=== PATIENT | female | born 1940 | race African-American/Black ===

== ENCOUNTER 2016-07-27 21:34 | Emergency (ER) | payer MEDICARE | END 2016-07-28 00:38 | disposition home or self-care (01) | LOC: D.ER 21:34 | DX: S16.1XXA Strain of muscle, fascia and tendon at neck level, initial encounter (principal); X58.XXXA Exposure to other specified factors, initial encounter; Y93.89 Activity, other specified; Y92.019 Unspecified place in single-family (private) house as the place of occurrence of the external cause; M48.36 Traumatic spondylopathy, lumbar region; I10 Essential (primary) hypertension ==

== ENCOUNTER 2017-02-02 03:08 | Emergency (ER) | payer MEDICARE ==
[2017-02-02 03:41] LABS: BASOPHILS 0.1 % (0-2); EOSINOPHILS 0.9 % (0-7); HEMATOCRIT 35.8 % (36.0-48.0); HEMOGLOBIN 11.8 g/dL (12-16); IMMATURE GRANULOCYTES 0.1 % (0-5); LYMPHOCYTES 35.5 % (15-50); MCH 27.4 pg (26.0-34.0); MCV 83.3 fL (80.0-100.0); MEAN PLATELET VOLUME 10.1 fL (7.4-10.4); MONOCYTES 6.5 % (2-11); NEUTROPHILS 56.9 % (40-80); PLATELET COUNT 283 10x3/uL (130-400); RDW 14.9 % (11.5-14.5); WBC 8.8 10x3/uL (4.8-10.8)
[2017-02-02 04:04] LABS: ALBUMIN 3.4 g/dL (3.4-5.0); ALKALINE PHOSPHATASE 94 U/L (46-116); ALT (SGPT) 20 U/L (10-68); BILIRUBIN - TOTAL 0.22 mg/dL (0.2-1.3); CALC OSMOLALITY 274 mosm/kg (275-300); CALCIUM 8.7 mg/dL (8.5-10.1); CARBON DIOXIDE 28.6 mmol/L (21.0-32.0); CHLORIDE - SERUM 101 mmol/L (98-107); CREATININE - SERUM 0.7 mg/dL (0.6-1.3); GLUCOSE 113 mg/dL (74-106); POTASSIUM - SERUM 3.2 mmol/L (3.5-5.1); SODIUM 137 mmol/L (136-145); UREA NITROGEN 12 mg/dL (7-18); eGFR NON AFRICAN AMERICAN 86 mL/min (90-120)
[2017-02-02 04:14] LABS: CKMB 1.7 U/L (0.0-3.6); CREATINE KINASE 293 UL (21-215)
[2017-02-02 04:16] LABS: TROPONIN-I < 0.017 ng/mL (0.000-0.060)
[2017-02-02 04:56] LABS: APPEARANCE CLEAR (CLEAR); BILIRUBIN NEGATIVE (NEGATIVE); COLOR YELLOW (YELLOW); GLUCOSE NEGATIVE (NEGATIVE); KETONE NEGATIVE (NEGATIVE); NITRITE NEGATIVE (NEGATIVE); PROTEIN NEGATIVE (NEGATIVE); SPECIFIC GRAVITY 1.015 (1.005-1.020); UROBILINOGEN NORMAL (NORMAL)
== END 2017-02-02 06:57 | disposition home or self-care (01) ==
LOC: D.ER 03:08
PROVIDERS: Family Medicine
DX: I10 Essential (primary) hypertension (principal); E87.6 Hypokalemia; R00.1 Bradycardia, unspecified

== ENCOUNTER 2017-05-26 17:59 | Emergency (ER) | payer MEDICARE ==
[2017-05-26 19:07] LABS: APPEARANCE HAZY (CLEAR); BACTERIA FEW /hpf (NONE SEEN); BILIRUBIN NEGATIVE (NEGATIVE); COLOR YELLOW (YELLOW); EPITHELIAL CELLS 0-5 /hpf (0-5); GLUCOSE NEGATIVE (NEGATIVE); KETONE NEGATIVE (NEGATIVE); MUCUS >1+ /lpf (NONE SEEN); NITRITE NEGATIVE (NEGATIVE); PROTEIN NEGATIVE (NEGATIVE); RED CELLS - URINE 0-5 /hpf (0-5); UROBILINOGEN NORMAL (NORMAL); WHITE CELLS - URINE 0-5 /hpf (0-5)
[2017-05-26 19:44] LABS: BASOPHILS 0.1 % (0-2); EOSINOPHILS 1.2 % (0-7); HEMATOCRIT 39.6 % (36.0-48.0); HEMOGLOBIN 12.7 g/dL (12-16); IMMATURE GRANULOCYTES 0.3 % (0-5); LYMPHOCYTES 43.9 % (15-50); MCHC 32.1 g/dL (31.0-37.0); MCV 84.1 fL (80.0-100.0); MEAN PLATELET VOLUME 10.6 fL (7.4-10.4); NEUTROPHILS 46.5 % (40-80); PLATELET COUNT 294 10x3/uL (130-400); RBC 4.71 10x6/uL (4.00-5.40); RDW 14.9 % (11.5-14.5); WBC 7.6 10x3/uL (4.8-10.8)
[2017-05-26 19:53] LABS: ALBUMIN 3.6 g/dL (3.4-5.0); ALKALINE PHOSPHATASE 98 U/L (46-116); ALT (SGPT) 20 U/L (10-68); AMYLASE - SERUM 66 U/L (25-115); BILIRUBIN - TOTAL 0.19 mg/dL (0.2-1.3); CALC OSMOLALITY 280 mosm/kg (275-300); CALCIUM 8.9 mg/dL (8.5-10.1); CARBON DIOXIDE 26.7 mmol/L (21.0-32.0); CHLORIDE - SERUM 103 mmol/L (98-107); CREATININE - SERUM 0.7 mg/dL (0.6-1.3); GLUCOSE 96 mg/dL (74-106); POTASSIUM - SERUM 3.4 mmol/L (3.5-5.1); PROTEIN - SERUM 7.7 g/dL (6.4-8.2); SODIUM 142 mmol/L (136-145); UREA NITROGEN 8 mg/dL (7-18); eGFR NON AFRICAN AMERICAN 86 mL/min (90-120)
[2017-05-26 20:01] LABS: LIPASE 443 U/L (73-393)
== END 2017-05-26 21:44 | disposition home or self-care (01) ==
LOC: D.ER 17:59
PROVIDERS: Family Medicine
DX: M54.5 Low back pain (principal); I10 Essential (primary) hypertension

== ENCOUNTER 2017-06-17 11:19 | Emergency (ER) | payer MEDICARE, MEDICAID | END 2017-06-17 14:46 | disposition left against medical advice (07) | LOC: D.ER 11:19 | DX: M54.5 Low back pain (principal) ==

== ENCOUNTER 2017-10-26 02:44 | Emergency (ER) | payer MEDICARE, MEDICAID ==
[~2017-10-26] VITALS: Ht 157.5 cm; Wt 70.9 kg
[2017-10-26 02:53] VITALS: Ht 157.5 cm; Wt 70.9 kg
[2017-10-26] MEDS ORDERED: ULTRAM50 MG PO ×2 (02:55→04:03)
[2017-10-26] MEDS ORDERED: CELEBREX 100 M100 MG PO (02:55)
[2017-10-26] MEDS ORDERED: NORVASC10 MG (02:56)
[2017-10-26] MEDS ORDERED: NEURONTIN 300300 MG PO (02:56)
[2017-10-26] MEDS ORDERED: PRAVACHOL40 MG PO (02:56)
[2017-10-26] MEDS ORDERED: HYZAAR 100-25 T1 TAB PO (02:56)
[2017-10-26] MEDS ORDERED: CYMBALTA60 MG PO (02:56)
[2017-10-26] MEDS ORDERED: HYDROCODONE-APA1 TAB PO (02:56)
[2017-10-26] MEDS ORDERED: BYSTOLIC2.5 MG PO (02:56)
[2017-10-26 04:56] VITALS: BP 165/72
== END 2017-10-26 04:32 | disposition home or self-care (01) ==
LOC: D.ER 02:44
DX: M54.5 Low back pain (principal); M47.9 Spondylosis, unspecified

== ENCOUNTER 2018-11-13 19:29 | Emergency (ER) | payer MEDICARE, MEDICAID ==
[~2018-11-13] VITALS: Ht 157.5 cm; Wt 50.0 kg
[~2018-11-13 19:29] MED LIST: BYSTOLIC2.5 MG PO; CELEBREX 100 M100 MG PO; CYMBALTA60 MG PO; HYDROCODONE-APA1 TAB PO; HYZAAR 100-25 T1 TAB PO; NEURONTIN 300300 MG PO; NORVASC10 MG; PRAVACHOL40 MG PO; ULTRAM50 MG PO
[2018-11-13 19:33] VITALS: Ht 157.5 cm; Wt 50.0 kg
[2018-11-13 20:54] LABS: BASOPHILS 0.2 % (0-2); EOSINOPHILS 1.2 % (0-7); HEMATOCRIT 38.3 % (36.0-48.0); HEMOGLOBIN 12.4 g/dL (12-16); IMMATURE GRANULOCYTES 0.2 % (0-5); LYMPHOCYTES 45.5 % (15-50); MCH 27.2 pg (26.0-34.0); MCHC 32.4 g/dL (31.0-37.0); MEAN PLATELET VOLUME 10.3 fL (7.4-10.4); MONOCYTES 8.1 % (2-11); NEUTROPHILS 44.8 % (40-80); PLATELET COUNT 280 10x3/uL (130-400); RBC 4.56 10x6/uL (4.00-5.40); RDW 14.9 % (11.5-14.5); WBC 8.7 10x3/uL (4.8-10.8)
[2018-11-13 20:58] LABS: ALBUMIN 3.6 g/dL (3.4-5.0); ALKALINE PHOSPHATASE 102 U/L (46-116); ALT (SGPT) 17 U/L (10-68); CALC OSMOLALITY 285 mosm/kg (275-300); CARBON DIOXIDE 28.9 mmol/L (21.0-32.0); CHLORIDE - SERUM 107 mmol/L (98-107); CREATININE - SERUM 0.9 mg/dL (0.6-1.3); GLUCOSE 104 mg/dL (74-106); POTASSIUM - SERUM 3.9 mmol/L (3.5-5.1); PROTEIN - SERUM 8.2 g/dL (6.4-8.2); SODIUM 143 mmol/L (136-145); UREA NITROGEN 14 mg/dL (7-18); eGFR NON AFRICAN AMERICAN 64 mL/min (90-120)
[2018-11-13 21:01] LABS: INR 1.07 (0.85-1.17); PROTIME 13.4 SECONDS (11.6-15.0)
[2018-11-13 21:11] LABS: CKMB 1.4 U/L (0.0-3.6); CREATINE KINASE 217 UL (21-215); MAGNESIUM - SERUM 1.9 mg/dL (1.8-2.4); TROPONIN-I < 0.017 ng/mL (0.000-0.060)
[2018-11-13] MEDS ORDERED: HYDROCODON-ACE1 EAC2 PO (21:54)
[2018-11-13 22:40] VITALS: BP 169/72
== END 2018-11-13 22:40 | disposition home or self-care (01) ==
LOC: D.ER 19:29
PROVIDERS: Emergency Medicine
DX: R07.89 Other chest pain (principal)

== ENCOUNTER 2018-11-26 11:19 | Emergency (ER) | payer MEDICARE, MEDICAID ==
[~2018-11-26] VITALS: Ht 157.5 cm; Wt 70.9 kg
[~2018-11-26 11:19] MED LIST changes: +HYDROCODON-ACE1 EAC2 PO
[2018-11-26 11:22] VITALS: Ht 157.5 cm; Wt 70.9 kg
[2018-11-26] MEDS ORDERED: ZITHROMAX500 MG PO (12:04)
[2018-11-26] MEDS ORDERED: TESSALON PERLE100 MG PO (12:04)
[2018-11-26 12:10] LABS: BASOPHILS 0.3 % (0-2); EOSINOPHILS 0.5 % (0-7); HEMATOCRIT 36.6 % (36.0-48.0); HEMOGLOBIN 12.6 g/dL (12-16); IMMATURE GRANULOCYTES 0.3 % (0-5); LYMPHOCYTES 30.6 % (15-50); MCH 28.1 pg (26.0-34.0); MCHC 34.4 g/dL (31.0-37.0); MCV 81.7 fL (80.0-100.0); MEAN PLATELET VOLUME 9.8 fL (7.4-10.4); NEUTROPHILS 60.3 % (40-80); PLATELET COUNT 307 10x3/uL (130-400); RBC 4.48 10x6/uL (4.00-5.40); RDW 14.6 % (11.5-14.5); WBC 11.6 10x3/uL (4.8-10.8)
[2018-11-26 12:27] LABS: ALBUMIN 3.5 g/dL (3.4-5.0); ALKALINE PHOSPHATASE 95 U/L (46-116); ALT (SGPT) 21 U/L (10-68); BILIRUBIN - TOTAL 0.53 mg/dL (0.2-1.3); CALC OSMOLALITY 280 mosm/kg (275-300); CARBON DIOXIDE 30.8 mmol/L (21.0-32.0); CHLORIDE - SERUM 102 mmol/L (98-107); CREATININE - SERUM 0.8 mg/dL (0.6-1.3); GLUCOSE 90 mg/dL (74-106); PRO BNP 234 pg/mL (0-450); PROTEIN - SERUM 8.5 g/dL (6.4-8.2); SODIUM 142 mmol/L (136-145); UREA NITROGEN 6 mg/dL (7-18); eGFR NON AFRICAN AMERICAN 73 mL/min (90-120)
[2018-11-26 12:30] LABS: POTASSIUM - SERUM 2.9 mmol/L (3.5-5.1); TROPONIN-I < 0.017 ng/mL (0.000-0.060)
[2018-11-26] MEDS ORDERED: ALBUTEROL SULF8.5 GM INH (12:32)
[2018-11-26 13:02] VITALS: BP 156/79
== END 2018-11-26 12:59 | disposition home or self-care (01) ==
LOC: D.ER 11:19
PROVIDERS: Family Medicine
DX: J20.9 Acute bronchitis, unspecified (principal); G89.29 Other chronic pain; E87.6 Hypokalemia

== ENCOUNTER 2019-03-13 14:14 | Emergency (ER) | payer MEDICARE, MEDICAID ==
[~2019-03-13] VITALS: Ht 157.5 cm; Wt 68.2 kg
[~2019-03-13 14:14] MED LIST changes: +ALBUTEROL SULF8.5 GM INH; +TESSALON PERLE100 MG PO; +ZITHROMAX500 MG PO
[2019-03-13 14:18] VITALS: Ht 157.5 cm; Wt 68.2 kg
[2019-03-13] MEDS ORDERED: OMNICEF300 MG PO (15:04)
[2019-03-13 15:36] VITALS: BP 119/82
== END 2019-03-13 15:36 | disposition home or self-care (01) ==
LOC: D.ER 14:14
DX: J02.0 Streptococcal pharyngitis (principal); I10 Essential (primary) hypertension

== ENCOUNTER 2019-03-24 17:25 | Emergency (ER) | payer MEDICARE, MEDICAID ==
[~2019-03-24] VITALS: Ht 157.5 cm; Wt 68.2 kg
[~2019-03-24 17:25] MED LIST changes: +OMNICEF300 MG PO
[2019-03-24 17:29] VITALS: Ht 157.5 cm; Wt 68.2 kg
[2019-03-24 18:08] LABS: BASOPHILS 0.1 % (0-2); EOSINOPHILS 0.8 % (0-7); HEMATOCRIT 37.6 % (36.0-48.0); HEMOGLOBIN 12.2 g/dL (12-16); IMMATURE GRANULOCYTES 0.2 % (0-5); LYMPHOCYTES 40.8 % (15-50); MCH 27.3 pg (26.0-34.0); MCHC 32.4 g/dL (31.0-37.0); MCV 84.1 fL (80.0-100.0); MEAN PLATELET VOLUME 9.5 fL (7.4-10.4); MONOCYTES 4.5 % (2-11); NEUTROPHILS 53.6 % (40-80); RBC 4.47 10x6/uL (4.00-5.40); RDW 14.3 % (11.5-14.5); WBC 10.3 10x3/uL (4.8-10.8)
[2019-03-24 18:09] LABS: PLATELET COUNT 401 10x3/uL (130-400)
[2019-03-24 18:15] LABS: ANION GAP 12.8 mmol/L (8-16); CALCIUM 9.2 mg/dL (8.5-10.1); CARBON DIOXIDE 27.3 mmol/L (21.0-32.0); CREATININE - SERUM 0.8 mg/dL (0.6-1.3); POTASSIUM - SERUM 3.1 mmol/L (3.5-5.1)
[2019-03-24 18:16] LABS: APTT 30.3 SECONDS (22.8-39.4); INR 1.1 (0.85-1.17); PROTIME 13.7 SECONDS (11.6-15.0)
[2019-03-24 18:21] LABS: ALBUMIN 3.4 g/dL (3.4-5.0); BILIRUBIN - TOTAL 0.4 mg/dL (0.2-1.3); PROTEIN - SERUM 9.1 g/dL (6.4-8.2)
[2019-03-24] MEDS ORDERED: NAPROXEN375 M1 PO (19:30)
[2019-03-24 19:48] VITALS: BP 186/83
== END 2019-03-24 19:48 | disposition home or self-care (01) ==
LOC: D.ER 17:25
PROVIDERS: Family Medicine
DX: M26.629 Arthralgia of temporomandibular joint, unspecified side (principal); E87.6 Hypokalemia; I10 Essential (primary) hypertension